=== PATIENT | female | born 2000 | race Hispanic/Latino ===

== ENCOUNTER 2021-04-27 13:34 | Emergency (ER) | payer OTHER ==
[~2021-04-27] VITALS: Ht 162.6 cm; Wt 89.8 kg
[2021-04-27 20:05] VITALS: BP 130/81
[2021-04-27] MEDS ORDERED: KETOROLAC TROMETHAMINE 10 MG TAB PO ONE (20:45)
--- NOTE | 2021-04-27 23:04 | REPVR ---
PROCEDURE INFORMATION: Exam: XR Left Shoulder Exam date and time: 04/27/2021 9:09 PM Age: 20 years old Clinical indication: Pain; Shoulder; Left TECHNIQUE: Imaging protocol: XR Left shoulder. Views: 2 or more views. COMPARISON: No relevant prior studies available. FINDINGS: Bones/joints: Bony mineralization is normal for age. No evidence of acute fracture. No concerning osseous lesion. AC joint is aligned normally. Glenohumeral joint is aligned normally. Visualized upper ribs are unremarkable. Soft tissues: No abnormal soft tissue process. No concerning soft tissue calcifications. IMPRESSION: Unremarkable shoulder radiographs. Electronically signed by: Shailesh Moore On 04/27/2021 23:04:18 PM
== END 2021-04-27 23:00 | disposition left against medical advice (07) ==
LOC: M ED 13:34
DX: M79.602 Pain in left arm (principal); Z53.9 Procedure and treatment not carried out, unspecified reason; F32.9 Major depressive disorder, single episode, unspecified

== ENCOUNTER 2021-07-20 21:55 | Emergency (ER) | payer OTHER ==
[~2021-07-20] VITALS: Ht 162.6 cm; Wt 90.0 kg
[2021-07-20 21:58] VITALS: BP 121/76
== END 2021-07-21 01:01 | disposition left against medical advice (07) ==
LOC: M ED 21:55
DX: Z53.21 Procedure and treatment not carried out due to patient leaving prior to being seen by health care provider (principal)

== ENCOUNTER 2021-07-21 05:01 | Emergency (ER) | payer OTHER ==
[~2021-07-21] VITALS: Ht 162.6 cm; Wt 90.0 kg
[2021-07-21] MEDS ORDERED: MORPHINE 2 MG/ML 1ML VIAL (J2270) IV ONE (12:30)
[2021-07-21] MEDS ORDERED: ONDANSETRON 4MG/2ML VIAL IV ONE (12:30)
[2021-07-21 12:37] LABS: BASO % 0.5 % (0.0-1.0); EOS # 0.2 10^3/uL (0.0-0.5); EOS % 2.5 % (0.0-3.0); HEMATOCRIT 47.7 % (36.0-47.0); HEMOGLOBIN 15.6 g/dl (12.0-15.5); LYMPH # 2.5 10^3/uL (1.5-5.0); LYMPH % 30.8 % (24.0-44.0); MEAN CORPUSCULAR HEMOGLOBIN 31.1 pg (27.0-33.0); MEAN CORPUSCULAR HGB CONC 32.7 g/dl (32.0-36.5); MONO # 0.6 10^3/uL (0.0-0.8); MONO % 6.9 % (2.0-8.0); NEUTROPHILS # 4.7 10^3/uL (1.5-8.5); NEUTROPHILS % 58.8 % (36.0-66.0); PLATELET COUNT, AUTOMATED 375 10^3/uL (150-450); RED BLOOD COUNT 5.02 10^6/uL (4.00-5.40)
[2021-07-21 13:03] LABS: ALT/SGPT 57 U/L (12-78); BILIRUBIN,DIRECT < 0.1 MG/DL (0.0-0.2); BILIRUBIN,TOTAL 0.2 MG/DL (0.2-1.0); BLOOD UREA NITROGEN 11 MG/DL (7-18); CALCIUM LEVEL 9.1 MG/DL (8.5-10.1); CARBON DIOXIDE LEVEL 25 MEQ/L (21-32); CHLORIDE LEVEL 108 MEQ/L (98-107); CREATININE FOR GFR 0.78 MG/DL (0.55-1.30); GLOMERULAR FILTRATION RATE > 60.0 (>60); GLUCOSE, FASTING 108 MG/DL (70-100); POTASSIUM SERUM 4.3 MEQ/L (3.5-5.1); SODIUM LEVEL 139 MEQ/L (136-145); TOTAL PROTEIN 7.7 GM/DL (6.4-8.2)
[2021-07-21 13:11] LABS: HCG, SERUM QUALITATIVE NEGATIVE (NEGATIVE)
[2021-07-21] MEDS ORDERED: ISOVUE-370 76% 100ML VIAL As Ordered ONE (13:26)
[2021-07-21 13:44] LABS: RSV AMPLIFICATION NEGATIVE (NEGATIVE)
[2021-07-21 14:51] VITALS: BP 131/84
== END 2021-07-21 14:52 | disposition home or self-care (01) ==
LOC: M ED 05:01
DX: R05.9 Cough, unspecified (principal); B34.9 Viral infection, unspecified; N83.202 Unspecified ovarian cyst, left side; K76.89 Other specified diseases of liver
CPT/HCPCS: 74177; 80048; 80076; 84703; 85025; 87631; 87880; 96374; 99284; J2270; J2405; Q9967